=== PATIENT | female | born 1975 | race American Indian/Alaskan Native ===

== ENCOUNTER 2019-04-28 16:01 | Emergency (ER) | payer SELFPAY ==
--- NOTE | 2019-04-28 16:06 | Event Note ---
ED Screening Note Date of service: 04/28/19 Time: 16:03 ED Screening Note: 43 y o male presents cc of right groin pain and swelling x 3 days This initial assessment/diagnostic orders/clinical plan/treatment(s) is/are subject to change based on patients health status, clinical progression and re- assessment by fellow clinical providers in the ED. Further treatment and workup at subsequent clinical providers discretion. Patient/guardian urged not to elope from the ED as their condition may be serious if not clinically assessed and managed. Initial orders include: ACC eval
[2019-04-28] MEDS ORDERED: NORCO 5/325 PO ONE (19:25)
--- NOTE | 2019-04-28 19:56 | Emergency Department Report ---
- General Chief complaint: Skin/Abscess/Foreign Body Stated complaint: RT SIDE HIP BUG BITE/PAIN Time Seen by Provider: 04/28/19 16:03 Source: patient Mode of arrival: Ambulatory Limitations: No Limitations - History of Present Illness Initial comments: 43 year old female presents to the emergency room complaining of swelling to the right groin 3 days with fever and chills. Patient thinks that she may have a insect bite or ingrown hair. Patient reports no past medical history does not take any medications on a daily basis and has no known drug allergies. MD complaint: rash Onset/Timin -: days(s) - Related Data Previous Rx's Medication Instructions Recorded Last Taken Type Ibuprofen [Motrin 800 MG tab] 800 mg PO Q8HR PRN #30 tablet 04/28/19 Unknown Rx cephALEXin [Keflex] 500 mg PO Q12HR 10 Days #20 cap 04/28/19 Unknown Rx Allergies Allergy/AdvReac Type Severity Reaction Status Date / Time No Known Allergies Allergy Unverified 04/28/19 16:11 Abscess [facility] Chief Complaint: Skin/Abscess/Foreign Body Stated Complaint: RT SIDE HIP BUG BITE/PAIN Time Seen by Provider: 04/28/19 16:03 Home Medications: Previous Rx's Medication Instructions Recorded Last Taken Type Ibuprofen [Motrin 800 MG tab] 800 mg PO Q8HR PRN #30 tablet 04/28/19 Unknown Rx cephALEXin [Keflex] 500 mg PO Q12HR 10 Days #20 cap 04/28/19 Unknown Rx Allergies/Adverse Reactions: Allergies Allergy/AdvReac Type Severity Reaction Status Date / Time No Known Allergies Allergy Unverified 04/28/19 16:11 ED Review of Systems ROS: Stated complaint: RT SIDE HIP BUG BITE/PAIN Other details as noted in HPI ED Past Medical Hx - Social History Smoking Status: Current Every Day Smoker Substance Use Type: Marijuana - Medications Home Medications: Home Medications Medication Instructions Recorded Confirmed Last Taken Type Ibuprofen [Motrin 800 MG tab] 800 mg PO Q8HR PRN #30 tablet 04/28/19 Unknown Rx cephALEXin [Keflex] 500 mg PO Q12HR 10 Days #20 cap 04/28/19 Unknown Rx ED Physical Exam - General Limitations: No Limitations ED Course Vital Signs 04/28/19 04/28/19 16:08 19:40 Temperature 98.2 F Pulse Rate 96 H Respiratory 20 16 Rate Blood Pressure 133/75 O2 Sat by Pulse 97 Oximetry ED Medical Decision Making - Medical Decision Making 43 year old female presents to the emergency room complaining of swelling to the right groin 3 days with fever and chills. Patient thinks that she may have a insect bite or ingrown hair. Patient reports no past medical history does not take any medications on a daily basis and has no known drug allergies. It appears the patient has a cellulitis to her groin area. Patient be placed on Keflex and pain medication. Patient is to follow-up by her primary care provider. Critical care attestation.: If time is entered above; I have spent that time in minutes in the direct care of this critically ill patient, excluding procedure time. ED Disposition Clinical Impression: Cellulitis of right groin Disposition: - TO HOME OR SELFCARE Is pt being admited?: No Does the pt Need Aspirin: No Condition: Stable Instructions: Cellulitis (ED) Additional Instructions: Please completed your antibiotics as prescribed. Pain medication as needed. And follow-up with her primary care provider in the next 2-3 days for reevaluation. Prescriptions: cephALEXin [Keflex] 500 mg PO Q12HR 10 Days #20 cap Ibuprofen [Motrin 800 MG tab] 800 mg PO Q8HR PRN #30 tablet PRN Reason: Pain , Severe (7-10) Referrals: PRIMARY CARE, [Primary Care Provider] - 3-5 Days Forms: Work/School Release Form(ED)
[2019-04-28 20:19] VITALS: BP 128/82
== END 2019-04-28 20:19 | disposition home or self-care (01) ==
LOC: ED 16:01
DX: L03.314 Cellulitis of groin (principal); F17.200 Nicotine dependence, unspecified, uncomplicated; F12.10 Cannabis abuse, uncomplicated; Z79.1 Long term (current) use of non-steroidal anti-inflammatories (NSAID)
CPT/HCPCS: 99282